=== PATIENT | male | born 1990 | race Caucasian/White ===

== ENCOUNTER 2018-01-16 22:10 | Emergency (ER) | payer SELFPAY ==
[2018-01-16] MEDS ORDERED: ZIPRASIDONE MESYLA 20 MG/VIAL IM ONE (22:30)
[2018-01-16] MEDS ORDERED: WATER FOR INJ,STERILE 10 ML ONE (22:30)
[2018-01-16 22:50] LABS: Absolute Lymphocytes (CBC) 5.5 K/uL (0.7-4.9); Absolute Monocytes 1.2 K/uL (0.1-1.3); Absolute Neutrophil 18.8 K/uL (1.8-8.0); Basophils % 0.5 % (0-1.3); Eosinophils % 2.3 % (0-4.4); Hematocrit 51.9 % (39.6-49.0); MCH 29.6 pg (27.0-35.0); MCV 90.9 fL (80-100); MPV 9.5 fL (7.6-11.3); Monocytes % 4.5 % (3.3-12.3); RBC Red Blood Cell Count 5.71 M/uL (4.33-5.43)
[2018-01-16 22:52] LABS: Protime INR 0.92
[2018-01-16 23:04] LABS: Bicarbonate 19 mEq/L (21-31); Glucose Level 88 mg/dL (65-120); Sodium Level 144 mEq/L (135-145)
[2018-01-16] MEDS ORDERED: NA CHLORIDE 0.9% 1,000 ML ONE (23:06)
[2018-01-16] MEDS ORDERED: LORazepam 2 MG/ML VIAL ONE (23:06)
[2018-01-16 23:08] LABS: Barbiturates NEGATIVE; Benzodiazepines NEGATIVE; Cocaine POSITIVE; METHAMPHETAM NEGATIVE; Opiates NEGATIVE
[2018-01-16 23:09] LABS: Phencyclidine ND; THC Cannibis ND
[2018-01-16 23:12] LABS: ALT/SGPT 227 IU/L (10-60); Albumin 4.6 g/dL (3.2-5.5); Alkaline Phosphatase 85 IU/L (42-121); BUN Blood Urea Nitrogen 10 mg/dL (6-20); Bilirubin Direct 0.1 mg/dL (0-0.2); Bilirubin Total 0.2 mg/dL (0.3-1.2); Protein, Total 8.1 g/dL (6.0-8.3)
[2018-01-16 23:14] LABS: Blood Morphology Comment NOT SEEN (NOT SEEN); Platelet Estimate ADEQ
[2018-01-16 23:16] LABS: Urine Blood 1+ (NEG); Urine Glucose NEGATIVE (NEG); Urine Protein 2+ (NEG)
[2018-01-16 23:21] LABS: Alcohol Serum/Plasma 359 mg/dl; Salicylates Level < 4.0 mg/dl (<30)
[2018-01-16 23:22] LABS: AST/SGOT 307 IU/L (10-42)
[2018-01-17] MEDS ORDERED: LIDOCAINE 1% 20 ML MDV ONE (00:16)
[2018-01-17] MEDS ORDERED: CEFAZOLIN/SWI 1gm 1 GM/10 ML SYR ONE (01:15)
[2018-01-17] MEDS ORDERED: TETANUS & DIPHTHERIA TOX,ADULT 0.5 ML VIAL ONE (01:15)
[2018-01-17 01:53] LABS: Hematocrit 46.4 % (39.6-49.0); MCH 29.7 pg (27.0-35.0); MCV 90.9 fL (80-100); MPV 9.2 fL (7.6-11.3); RBC Red Blood Cell Count 5.11 M/uL (4.33-5.43)
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
== END 2018-01-17 02:21 | disposition home or self-care (01) ==
LOC: ER 22:10
PROC: 0JQK0ZZ Repair Left Hand Subcutaneous Tissue and Fascia, Open Approach (ICD-10-PCS; principal; 2018-01-17)
DX: S61.412A Laceration without foreign body of left hand, initial encounter (principal); S00.93XA Contusion of unspecified part of head, initial encounter; F10.129 Alcohol abuse with intoxication, unspecified; F14.121 Cocaine abuse with intoxication with delirium; Y08.89XA Assault by other specified means, initial encounter; Y93.89 Activity, other specified; Y92.89 Other specified places as the place of occurrence of the external cause; Z23 Encounter for immunization; Z72.0 Tobacco use
CPT/HCPCS: 36415; 51702; 70450; 70486; 76377; 80048; 80076; 80307; 80320; 80329; 81003; 85025; 85027; 85610; 85730; 90714; 96372; 96374; 99285; J0690; J3486; J7030

== ENCOUNTER 2019-04-08 13:47 | Emergency (ER) | payer SELFPAY ==
--- NOTE | 2019-04-08 14:31 | RAD REPORT ---
EXAM DESCRIPTION: RAD - Ankle Right 3 View - 04/08/2019 2:24 pm CLINICAL HISTORY: PAIN COMPARISON: <Comparisons> FINDINGS: Oblique fracture of the distal fibula is seen with moderate adjacent soft tissue swelling. No dislocation evident.
[2019-04-08] MEDS ORDERED: HYDROCODONE/APAP 10/325 TAB ONE (15:20)
--- NOTE | 2019-04-08 15:35 | ER ---
Nurse's Notes [facility] Name: Saurabh Kirk Age: 28 yrs Sex: Male : 1990 Arrival Date: 04/08/2019 Time: 13:48 Bed 27 Private MD: Valdez Yates E Diagnosis: Closed right distal fibula oblique fracture Presentation: 04/08 13:59 Presenting complaint: Patient states: yesterday i hurt my RIGHT ankle, i tripped and tw2 fell, i fell from standing. Transition of care: patient was not received from another setting of care. Onset of symptoms was April 08, 2019. Risk Assessment: Do you want to hurt yourself or someone else? Patient reports no desire to harm self or others. Initial Sepsis Screen: Does the patient meet any 2 criteria? No. Patient's initial sepsis screen is negative. Does the patient have a suspected source of infection? No. Patient's initial sepsis screen is negative. Care prior to arrival: None. 13:59 Method Of Arrival: Ambulatory tw2 13:59 Acuity: SEVERIANO 4 tw2 14:02 Note also "i was supposed to do community service today and i cant walk on it it hurts tw2 too bad". Triage Assessment: 14:01 General: Appears in no apparent distress. slender, Behavior is calm, cooperative, tw2 appropriate for age, Smells of cigarette smoke. Pain: Complains of pain in right lateral malleolus. EENT: LEFT eye has bruising noted and small laceration above LEFT eye. Musculoskeletal: Circulation, motion, and sensation intact. Range of motion: intact in all extremities, Swelling present in RIGHT ankle bruising noted to lateral RIGHT ankle. Historical: - Allergies: 14:59 No Known Allergies; la1 - Home Meds: 14:01 None [Active]; tw2 - PMHx: 14:01 None; tw2 - PSHx: 14:01 None; tw2 - Immunization history:: Adult Immunizations. - Social history:: Smoking status: Patient uses tobacco products, smokes one-half pack cigarettes per day. - Ebola Screening: : Patient denies travel to an Ebola-affected area in the 21 days before illness onset. Screenin:03 Abuse screen: Denies threats or abuse. Nutritional screening: No deficits noted. tw2 Tuberculosis screening: No symptoms or risk factors identified. Fall Risk None identified. Assessment: 14:20 General: Appears in no apparent distress. Behavior is calm, cooperative. Pain: la1 Complains of pain in right lateral malleolus. Neuro: Level of Consciousness is awake, alert, obeys commands. Musculoskeletal: Circulation, motion, and sensation intact. Capillary refill < 3 seconds, is brisk, in bilateral toes. Swelling present in right lateral malleolus Pt weight bearing and ambulatory. 15:09 Reassessment: Pt refusing Head/C-spine CT, verbalized understanding of risks including la1 with ER precautions. Vital Signs: 14:03 BP 111 / 73; Pulse 102; Resp 18; Temp 98(TE); Pulse Ox 98% on R/A; Weight 79.38 kg; tw2 Height 6 ft. 1 in. (185.42 cm) (R); Pain 7/10; 14:03 Body Mass Index 23.09 (79.38 kg, 185.42 cm) tw2 ED Course: 13:48 Patient arrived in ED. ag5 13:49 Valdez Yates MD is Private Physician. ag5 14:00 Triage completed. tw2 14:00 Arm band placed on. tw2 14:04 Alex Alvarze NP is PHCP. pm1 14:04 Vance Caldera MD is Attending Physician. pm1 14:07 Jean Carlos Graves, BENITO is Primary Nurse. la1 14:21 Call light in reach. Side rails up X 1. la1 14:25 Ankle Right 3 View XRAY In Process Unspecified. EDMS 15:31 Freddy Meadows MD is Referral Physician. pm1 15:46 No provider procedures requiring assistance completed. Patient did not have IV access la1 during this emergency room visit. Administered Medications: 15:10 Drug: [place] 10 mg-325 mg 1 tabs Route: PO; la1 15:46 Follow up: Response: No adverse reaction; Pain is decreased la1 Outcome: 15:35 Discharge ordered by . pm1 15:46 Discharged to home with crutches, with family. la1 15:46 Condition: stable 15:46 Discharge instructions given to patient, Instructed on discharge instructions, follow up and referral plans. medication usage, Demonstrated understanding of instructions, follow-up care, medications, crutch walking, Prescriptions given X 1. 15:46 Patient left the ED. la1 Signatures: Dispatcher [employer] EDMS Jean Carlos Graves RN RN la1 Alex Alvarez, PARTS COUNTERMAN PARTS COUNTERMAN pm1 Piper Ferguson RN RN tw2 Darryl Ivey ag5
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
== END 2019-04-08 15:46 | disposition home or self-care (01) ==
LOC: ER 13:47
PROC: 2W3QX1Z Immobilization of Right Lower Leg using Splint (ICD-10-PCS; principal; 2019-04-08)
DX: S82.431A Displaced oblique fracture of shaft of right fibula, initial encounter for closed fracture (principal); Y04.0XXA Assault by unarmed brawl or fight, initial encounter; Y93.89 Activity, other specified; Y92.89 Other specified places as the place of occurrence of the external cause; F17.210 Nicotine dependence, cigarettes, uncomplicated
CPT/HCPCS: 99284

== ENCOUNTER 2019-09-16 01:12 | Emergency (ER) | payer SELFPAY ==
[2019-09-16] MEDS ORDERED: LIDOCAINE 1% MPF 5 ML VIAL ONE (01:26)
--- NOTE | 2019-09-16 01:55 | EDPHYS ---
Physician Documentation [facility] Name: Saurabh Kirk Age: 29 yrs Sex: Male : 1990 Arrival Date: 09/16/2019 Time: 01:14 Bed 16 Private MD: ED Physician Flaquito Blackwood HPI: 09/16 02:16 This 29 yrs old Male presents to ER via Ambulatory with complaints of kb Laceration To Lip. 02:16 The patient has a laceration related to: falling from a standing position, occurred at home, and there are no complicating factors. The injury was accidental. The laceration(s) is(are) located on the left corner of mouth. Onset: The symptoms/episode began/occurred just prior to arrival. Associated signs and symptoms: The patient has no apparent associated signs or symptoms. The patient has not experienced similar symptoms in the past. The patient has not recently seen a physician. Historical: - Allergies: 01:21 No Known Allergies; aa1 - Home Meds: 01:21 None [Active]; aa1 - PMHx: 01:21 None; aa1 - PSHx: 01:21 None; aa1 - Immunization history:: Last tetanus immunization: < 5 years ago. - Social history:: Smoking status: Patient uses tobacco products, smokes one pack cigarettes per day. - Ebola Screening: : No symptoms or risks identified at this time. ROS: 02:16 Constitutional: Negative for fever, chills, and weight loss, ENT: Negative for injury, kb pain, and discharge, Neck: Negative for injury, pain, and swelling, Cardiovascular: Negative for chest pain, palpitations, and edema, Respiratory: Negative for shortness of breath, cough, wheezing, and pleuritic chest pain, Abdomen/GI: Negative for abdominal pain, nausea, vomiting, diarrhea, and constipation, MS/Extremity: Negative for injury and deformity, Neuro: Negative for headache, weakness, numbness, tingling, and seizure. 02:16 Skin: Positive for laceration(s), of the left corner of mouth. Exam: 02:15 Constitutional: This is a well developed, well nourished patient who is awake, alert, kb and in no acute distress. ENT: Nares patent. No nasal discharge, no septal abnormalities noted. Tympanic membranes are normal and external auditory canals are clear. Oropharynx with no redness, swelling, or masses, exudates, or evidence of obstruction, uvula midline. Mucous membranes moist. Neck: Trachea midline, no thyromegaly or masses palpated, and no cervical lymphadenopathy. Supple, full range of motion without nuchal rigidity, or vertebral point tenderness. No Meningismus. Chest/axilla: Normal chest wall appearance and motion. Nontender with no deformity. No lesions are appreciated. Cardiovascular: Regular rate and rhythm with a normal S1 and S2. No gallops, murmurs, or rubs. Normal PMI, no JVD. No pulse deficits. Respiratory: Lungs have equal breath sounds bilaterally, clear to auscultation and percussion. No rales, rhonchi or wheezes noted. No increased work of breathing, no retractions or nasal flaring. Abdomen/GI: Soft, non-tender, with normal bowel sounds. No distension or tympany. No guarding or rebound. No evidence of tenderness throughout. MS/ Extremity: Pulses equal, no cyanosis. Neurovascular intact. Full, normal range of motion. Neuro: Awake and alert, GCS 15, oriented to person, place, time, and situation. Cranial nerves II-XII grossly intact. Motor strength 5/5 in all extremities. Sensory grossly intact. Cerebellar exam normal. Normal gait. 02:15 Head/face: Noted is no obvious of injury or deformity except a laceration(s), that is superficial, 3 cm(s), of the left corner of mouth. Vital Signs: 01:21 Weight 74.84 kg; Height 6 ft. 0 in. (182.88 cm); Pain 0/10; aa1 01:30 BP 142 / 85; Pulse 110; Resp 19; Temp 98; Pulse Ox 99% ; rr5 02:10 BP 127 / 80; Pulse 99; Resp 17; Temp 98.5; Pulse Ox 100% ; Pain 0/10; rr5 01:21 Body Mass Index 22.38 (74.84 kg, 182.88 cm) aa1 Laceration: 02:15 Wound Repair of 3cm ( 1.2in ) subcutaneous laceration to left corner of mouth. Linear kb shaped.. Distal neuro/vascular/tendon intact. Anesthesia: Wound infiltrated with 3 mls of 1% lidocaine. Wound prep: Moderate cleansing, Wound irrigation. Skin closed with 4 6-0 Vicryl using simple sutures and sterile technique. Patient tolerated well. MDM: 01:15 Patient medically screened. kb 01:27 Data reviewed: vital signs, nurses notes. Data interpreted: Pulse oximetry: on room air kb is 100 %. Interpretation: normal. Counseling: I had a detailed discussion with the patient and/or guardian regarding: the historical points, exam findings, and any diagnostic results supporting the discharge/admit diagnosis, the need for outpatient follow up, a family practitioner, to return to the emergency department if symptoms worsen or persist or if there are any questions or concerns that arise at home. 09/16 01:55 Order name: Vicryl, Sutures; Complete Time: 02:12 kb 09/16 01:55 Order name: Dressing - Wound; Complete Time: 02:12 kb 09/16 01:55 Order name: Gloves, Sterile; Complete Time: 02:12 kb 09/16 01:55 Order name: Setup Suture Tray; Complete Time: 02:12 kb Administered Medications: 01:35 Drug: Lidocaine (1 %) 1 vials {Note: given by maral CORONADO.} Volume: 5 ml; Route: rr5 Infiltration; 02:05 Drug: Ibuprofen 800 mg Route: PO; rr5 02:14 Follow up: Response: Medication administered at discharge. rr5 Disposition: 15:26 Co-signature as Attending Physician, Flaquito Blackwood MD I agree with the assessment and gabriel plan of care. Disposition: 09/16/19 01:54 Discharged to Home. Impression: Laceration without foreign body of lip. - Condition is Stable. - Discharge Instructions: Mouth Laceration, [id number]. - Medication Reconciliation Form, Thank You Letter, Antibiotic Education, Prescription Opioid Use form. - Follow up: Emergency Department; When: As needed; Reason: Worsening of condition. Follow up: Private Physician; When: 2 - 3 days; Reason: Recheck today's complaints, Continuance of care, Re-evaluation by your physician. Signatures: Maral Wolfe, MIGNONC PATRICK-Andra Laurent RN RN aa1 Flaquito Blackwood MD MD cha Roque, Raymond RN RN rr5 Corrections: (The following items were deleted from the chart) 02:24 01:54 09/16/2019 01:54 Discharged to Home. Impression: Laceration without foreign body rr5 of lip. Condition is Stable. Forms are Medication Reconciliation Form, Thank You Letter, Antibiotic Education, Prescription Opioid Use. Follow up: Emergency Department; When: As needed; Reason: Worsening of condition. Follow up: Private Physician; When: 2 - 3 days; Reason: Recheck today's complaints, Continuance of care, Re-evaluation by your physician. kb
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
[2019-09-16] MEDS ORDERED: IBUPROFEN 400 MG TAB ONE (02:06)
[2019-09-16 14:03] VITALS: BP 127/80; TEMP 98.5; O2SAT 100
== END 2019-09-16 02:24 | disposition home or self-care (01) ==
LOC: ER 01:12
PROC: 0CQ0XZZ Repair Upper Lip, External Approach (ICD-10-PCS; principal; 2019-09-16)
DX: S01.511A Laceration without foreign body of lip, initial encounter (principal); W01.198A Fall on same level from slipping, tripping and stumbling with subsequent striking against other object, initial encounter; Y93.89 Activity, other specified; Y92.9 Unspecified place or not applicable; F17.210 Nicotine dependence, cigarettes, uncomplicated
CPT/HCPCS: 99283

== ENCOUNTER 2020-02-02 21:21 | Emergency (ER) | payer SELFPAY ==
[2020-02-02] MEDS ORDERED: NA CHLORIDE 0.9% 1,000 ML ONE (21:43)
--- NOTE | 2020-02-02 22:30 | ER ---
Nurse's Notes [facility] Name: Saurabh Kirk Age: 29 yrs Sex: Male : 1990 Arrival Date: 02/02/2020 Time: 21:26 Bed 4 Private MD: Diagnosis: Presentation: 02/01 21:26 Chief complaint:. sg 21:26 Acuity: SEVERIANO 2 sg 21:27 Chief complaint: EMS states: Reports he was walking from [place] and fell hit right ea side of his head, with positive LOC. EMS reported 3mm lac to right religious, positive ETOH. Coronavirus screen: Proceed with normal triage. Ebola Screen: No symptoms or risks identified at this time. Initial Sepsis Screen: Does the patient meet any 2 criteria? No. Patient's initial sepsis screen is negative. Does the patient have a suspected source of infection? No. Patient's initial sepsis screen is negative. Risk Assessment: Do you want to hurt yourself or someone else? Patient reports no desire to harm self or others. Onset of symptoms was February 02, 2020. 21:27 Method Of Arrival: EMS: [facility] 21:31 Care prior to arrival: None. Mechanism of Injury: Fall from standing position. Trauma ea event details: Injury occurred in the [facility], Injury occurred: on a street or highway. Trauma Activation: Alert Physician: ED Physician; Name: RIVERA; Notified At: ; Arrived At: Physician: General Surgeon; Name: ; Notified At: ; Arrived At: Physician: Radiology; Name: ; Notified At: ; Arrived At: Physician: Respiratory; Name: ; Notified At: ; Arrived At: Physician: Lab; Name: ; Notified At: ; Arrived At: Historical: - Allergies: 21:27 No Known Allergies; sg - PSHx: 21:27 None; sg - Immunization history:: Adult Immunizations up to date. - Social history:: Smoking status: Patient reports the use of cigarette tobacco products, 1 cigarette q 2 hours, Patient uses alcohol. - Immunization history: Last tetanus immunization: unknown. Screenin:29 Abuse screen: Denies threats or abuse. Nutritional screening: No deficits noted. ea Tuberculosis screening: No symptoms or risk factors identified. Fall Risk None identified. Primary Survey: :29 NO uncontrolled hemorrhage observed. A: The patient is alert. Airway: patent. ea Breathing/Chest: Respiratory pattern: regular, Respiratory effort: spontaneous, unlabored. Circulation: Skin color: pink, Skin temperature: warm. Disability Alert. Exposure/Environment:. Exposure/Environment: Obvious injury(ies) are noted at this time: laceration to right religious. Assessment: 21:33 General: Appears in no apparent distress. Behavior is appropriate for age. Pain: ea Complains of pain in right temporal area. 21:42 Reassessment: this patient removed his IV. He is also in the hallways using the sink to sg clean off the blood from his wounds, pt assisted back to his room, back into the stretcher. 21:50 Reassessment: Pt refuses to use C collar, refused IV and EKG. ea 21:50 Reassessment: this patient is ambulating in the hallway to use the phone, Sid from CT sg reports he would like to take the patient to CT, pt states " CT scans are too expensive, I dont want that." Sandeep BOCANEGRA at bedside with pt with Sammie and myself, pt continues to refuse testing. 22:00 Reassessment: pt ambulatory to the exit, attempt to speak with pt about having testing sg done, pt refusing to go back to room for testing, reports " all these tests are so expensive and they fuck up my credit score so bad man, like I cant even get a cell phone now because of being up in here.". 22:08 Reassessment: spoke on the phone with pt sister in law, updated on POC and current sg situation, sister in law reports she will try and talk the patient into receiving treatment. 22:13 Reassessment: no call back from pt or pt family at this time, pt remains out of the ED. sg will call pt sister in law back for more information. Vital Signs: 21:27 BP 127 / 86; Pulse 97; Resp 18; Pulse Ox 100% ; Weight 90.72 kg; Height 6 ft. 2 in. ea (187.96 cm); 21:30 BP 131 / 86; Pulse 86; Resp 18; Pulse Ox 100% on R/A; ea 21:27 Body Mass Index 25.68 (90.72 kg, 187.96 cm) ea Enrique Coma Score: 21:30 Eye Response: spontaneous(4). Verbal Response: oriented(5). Motor Response: obeys ea commands(6). Total: 15. 21:35 Eye Response: spontaneous(4). Verbal Response: oriented(5). Motor Response: obeys cp commands(6). Total: 15. Trauma Score (Adult): 21:30 Eye Response: spontaneous(1); Verbal Response: oriented(1); Motor Response: obeys ea commands(2); Systolic BP: > 89 mm Hg(4); Respiratory Rate: 10 to 29 per min(4); Enrique Score: 15; Trauma Score: 12 ED Course: 21:26 Patient arrived in ED. sg 21:26 Triage completed. sg 21:27 Sammie Szymanski, BENITO is Primary Nurse. ea 21:27 Arm band placed on. sg 21:30 Flaquito Mendoza PA is PHCP. cp 21:30 Nikos Rivera MD is Attending Physician. cp 21:30 Patient maintains SpO2 saturation greater than 95% on room air. ea 21:30 Thermoregulation: warm blanket given to patient. ea 21:31 Patient has correct armband on for positive identification. Bed in low position. Call ea light in reach. Side rails up X2. Administered Medications: 21:51 Not Given (Patient Refused): NS 0.9% 1000 ml IV at 1 bolus Per protocol; 1000 mL bolus ea Outcome: 22:23 Eloped from patient exam room, after seeing physician Time discovered patient gone: January at 22:23 22:30 Patient left the ED. ea Signatures: Lanre Granger RN Flaquito Ramirez PA PA cp Antunez, Elena, RN RN ea
--- NOTE | 2020-02-02 22:31 | EDPHYS ---
Physician Documentation [facility] Name: Saurabh Kirk Age: 29 yrs Sex: Male : 1990 Arrival Date: 02/02/2020 Time: 21:26 Bed 4 Private MD: ED Physician Nikos Lopez HPI: 02/01 21:33 This 29 yrs old Male presents to ER via EMS with complaints of ETOH Abuse, cp Fall Injury, Head Injury With LOC-Adult. 21:35 The patient or guardian reports injury, pain, swelling, tenderness. cp 21:35 The complaints affect the right mandaen. Context of injury: resulted from a fall. Onset: cp The symptoms/episode began/occurred today. Associated signs and symptoms: Loss of consciousness: This patient experience a loss of consciousness, for an unknown period of time. Patient reports he drink 3 beers today and may have taken 1 tablet of Lorazepam medication. Historical: - Allergies: 21:27 No Known Allergies; sg - PSHx: 21:27 None; sg - Immunization history:: Adult Immunizations up to date. - Social history:: Smoking status: Patient reports the use of cigarette tobacco products, 1 cigarette q 2 hours, Patient uses alcohol. - Immunization history: Last tetanus immunization: unknown. ROS: 21:40 Constitutional: Negative for fever. cp 21:40 Cardiovascular: Negative for chest pain. cp 21:40 Respiratory: Negative for cough, shortness of breath, wheezing. 21:40 Abdomen/GI: Negative for vomiting, diarrhea, constipation. 21:40 Skin: Positive for swelling, of the right temporal area. 21:40 Neuro: Positive for loss of consciousness. 21:40 Unable to obtain ROS due to patient being uncooperative. Exam: 21:45 ENT: External ear(s): Dried Blood. Ear canal(s): are normal, clear, TM's: dullness, cp bilaterally, Nose: is normal, Mouth: is normal, Posterior pharynx: Airway: no evidence of obstruction, patent. 21:45 Neck: C-spine: C-collar placed in ED. 21:45 Chest/axilla: Inspection: normal, Palpation: is normal, no crepitus, no tenderness. 21:45 Cardiovascular: Rate: normal, Rhythm: regular. 21:45 Respiratory: the patient does not display signs of respiratory distress, Respirations: normal, no use of accessory muscles, no retractions, labored breathing, is not present, Breath sounds: are clear throughout, no decreased breath sounds. 21:45 Abdomen/GI: Inspection: abdomen appears normal, Bowel sounds: active, all quadrants, Palpation: abdomen is soft and non-tender, in all quadrants, rebound tenderness, is not appreciated, voluntary guarding, is not appreciated, involuntary guarding, is not appreciated. 21:45 Musculoskeletal/extremity: Exam is negative for decreased range of motion, deformity, injury. 21:45 Neuro: Orientation: to person, place, situation, Mentation: able to follow commands, slow to respond, Motor: moves all fours, strength is normal, Gait: is unsteady. 21:45 Constitutional: The patient appears in no acute distress, alert, awake, cp non-diaphoretic, well developed, well nourished. 21:45 Head/face: Noted is contusion, that is superficial, of the right mandaen, swelling, that is mild, of the right mandaen, tenderness, that is mild, of the right mandaen. 21:45 Eyes: Periorbital structures: appear normal, Pupils: equal, round, and reactive to light and accomodation, Extraocular movements: intact throughout, Conjunctiva: normal, no exudate, no injection, Sclera: no appreciated abnormality, Lids and lashes: appear normal, bilaterally. 21:45 Back: pain, is absent, ROM is normal. Vital Signs: 21:27 BP 127 / 86; Pulse 97; Resp 18; Pulse Ox 100% ; Weight 90.72 kg; Height 6 ft. 2 in. ea (187.96 cm); 21:30 BP 131 / 86; Pulse 86; Resp 18; Pulse Ox 100% on R/A; ea 21:27 Body Mass Index 25.68 (90.72 kg, 187.96 cm) ea Enrique Coma Score: 21:30 Eye Response: spontaneous(4). Verbal Response: oriented(5). Motor Response: obeys ea commands(6). Total: 15. 21:35 Eye Response: spontaneous(4). Verbal Response: oriented(5). Motor Response: obeys cp commands(6). Total: 15. Trauma Score (Adult): 21:30 Eye Response: spontaneous(1); Verbal Response: oriented(1); Motor Response: obeys ea commands(2); Systolic BP: > 89 mm Hg(4); Respiratory Rate: 10 to 29 per min(4); Buffalo Score: 15; Trauma Score: 12 MDM: 21:31 Patient medically screened. 02/01 21:31 Order name: EKG; Complete Time: 21:32 02/01 21:31 Order name: IV Saline Lock; Complete Time: 21:33 02/01 21:31 Order name: Labs collected and sent; Complete Time: 21:33 cp Administered Medications: 21:51 Not Given (Patient Refused): NS 0.9% 1000 ml IV at 1 bolus Per protocol; 1000 mL bolus ea Disposition: 02/02 03:39 Co-signature as Attending Physician, Nikos Lopez MD. [email or web address] Disposition: 02/02/20 22:30 Patient left the facility after being seen by provider. - Patient left due to unknown. Signatures: Dispatcher [employer] EDLanre Carr RN RN sg Lam, Pin, MD MD pkFlaquito Dee PA PA Sammie Szymanski RN RN ea Corrections: (The following items were deleted from the chart) 02/01 22:01/31 21:45 Constitutional: The patient appears in no acute distress, alert, awake, cp well developed, well nourished, 02/01 22:01/31 21:45 Head/face: Noted is contusion, that is superficial, of the right mandaen, cp swelling, that is mild, of the right mandaen, Sinus tenderness, is not appreciated, 02/01 22:01/31 21:45 Eyes: Periorbital structures: appear normal, Pupils: equal, round, and cp reactive to light and accomodation, Extraocular movements: intact throughout, Conjunctiva: normal, Lids and lashes: appear normal, bilaterally, 02/01 22:01/31 21:45 ENT: External ear(s): Dried Blood. Ear canal(s): are normal, clear, TM's: cp dullness, bilaterally, Nose: is normal, Mouth: is normal, Posterior pharynx: Airway: no evidence of obstruction, patent, 02/01 22:01/31 21:45 Neck: C-spine: C-collar placed in ED, [facility] 02/01 22:01/31 21:45 Chest/axilla: Inspection: normal, Palpation: is normal, no crepitus, no cp tenderness, cp 02/01 22:01/31 21:45 Cardiovascular: Rate: normal, Rhythm: regular, cp cp 02/01 22:01/31 21:45 Respiratory: the patient does not display signs of respiratory distress, cp Respirations: normal, no use of accessory muscles, no retractions, labored breathing, is not present, Breath sounds: are clear throughout, no decreased breath sounds, cp 02/01 22:01/31 21:45 Abdomen/GI: Inspection: abdomen appears normal, Bowel sounds: active, all cp quadrants, Palpation: abdomen is soft and non-tender, in all quadrants, rebound tenderness, is not appreciated, voluntary guarding, is not appreciated, involuntary guarding, is not appreciated, cp 02/01 22:01/31 21:45 Musculoskeletal/extremity: Exam is negative for decreased range of motion, cp deformity, injury, cp 02/01 22:01/31 21:45 Neuro: Orientation: to person, place, situation, Mentation: able to follow cp commands, slow to respond, Motor: moves all fours, strength is normal, Gait: is unsteady, cp
[2020-02-02 22:38] VITALS: O2SAT 100
[2020-02-02 22:39] VITALS: BP 131/86
== END 2020-02-02 22:30 | disposition left against medical advice (07) ==
LOC: ER 21:21
DX: S06.9X9A Unspecified intracranial injury with loss of consciousness of unspecified duration, initial encounter (principal); W19.XXXA Unspecified fall, initial encounter; Y93.9 Activity, unspecified; Y92.9 Unspecified place or not applicable; Z72.0 Tobacco use
CPT/HCPCS: 99284; J7030